=== PATIENT | male | born 1955 | race Caucasian/White ===

== ENCOUNTER → 2024-02-04 17:05 | Outpatient (REF) | payer OTHER, SELFPAY | LOC: RAD 17:05 | PROVIDERS: ATTENDING PHYSICIAN Urology; FAMILY PHYSICIAN Family Medicine | DX: N20.0 Calculus of kidney (principal); N21.0 Calculus in bladder | CPT/HCPCS: 76770 ==

== ENCOUNTER 2024-07-24 08:45 | Emergency (ER) | payer OTHER, SELFPAY ==
[2024-07-24 08:51] VITALS: BP 152/81
--- NOTE | 2024-07-24 10:09 | ED.GENMED ---
History of Present Illness
General
Chief Complaint: Back Pain
Time Seen by Provider: 07/24/24 09:37
History of Present Illness
History of Present Illness:
68-year-old male with history of obesity, diabetes, hypertension, hyperlipidemia presenting to the emergency department for right-sided back pain. Patient reports mild right lower back pain for the past week. In the past 2 to 3 days, has had
increased pain. He walked his dog about 5 times yesterday around the block, and is unsure if he worsened his symptoms by overdoing it. He denies any direct injury or trauma to the back. Pain is worse in the morning time, alleviates throughout the
day. He is been taking Tylenol for pain. Denies weakness or numbness to extremities. Denies any urinary complaints. Denies any bowel complaints. Denies chest pain, difficulty breathing, abdominal pain or additional acute medical complaints.
Does note history of kidney stones in the past, however feels that pain is much different than his kidney stone pain
Past History
Past History
ED Past Medical History: HTN, Hypercholesterolemia, NIDDM, Other (Kidney stones) and Other (Chronic kidney disease)
ED Past Surgical History: None and Urological (Cystourethroscopy and cystolitholapaxy a large bladder stone, right ureteral stent removed 06/29/22)
Social History
Tobacco: Former smoker
Alcohol: Occasional
Drug: None
Personal:
Living: with family
Employment: Employed
Family History
Family History: Other (Noncontributory)
Phy Exam
Physical Exam
Physical Exam:
General: Well-appearing, no clinical signs of dehydration, nontoxic and in no acute distress
HEENT: protecting airway
Neck: appears supple
CV: Normal heart rate, regular rhythm
Resp: No accessory muscle use, no increased work of breathing, lungs clear to auscultation bilaterally
Abd: no distension
Extremities: No deformities, no swelling, no erythema, pulses and sensation intact. Positive right straight leg raise test. Generalized tenderness to the right lower lumbar musculature of the back. No midline tenderness. No overlying skin
changes.
Neuro: alert, no focal neurologic deficit
: deferred
Rectal: deferred
Psych: Normal affect
Skin: Intact
Course
Orders/Labs/Results
Orders:
Orders
07/24/24 09:58
Ketorolac [Toradol] 15 mg IM NOW STA
Lidocaine [Lidocaine 4% Patch] 1 patch TOPICAL ONCE ONE
Apply Lidocaine patch(s) to:: right lower back
Lumbar Spine Complete, 4 View [CR Lumbar Spine Comp Min 4 Vw*] Urgent
Comment:
Reason For Exam: right sided pain
07/24/24 10:39
Urinalysis Reflex To Culture Urgent
Date Specimen was Collected: 07/24/24
Time Specimen was Collected: 10:32
Abnormal Lab Results
07/24/24
10:39
Urine Glucose 4+ A
(Negative)
Vital Signs
Initial and Last Documented VS:
Initial Vital Signs
Temp Pulse Resp BP Pulse Ox
97.7 F 74 16 152/81 98
07/24/24 08:51 07/24/24 08:51 07/24/24 08:51 07/24/24 08:51 07/24/24 08:51
Last Documented Vital Signs
Temp Pulse Resp BP Pulse Ox
97.7 F 63 18 131/75 95
07/24/24 08:51 07/24/24 11:31 07/24/24 11:31 07/24/24 11:31 07/24/24 11:31
MDM/Problems Addressed
MDM/Problems Addressed:
68-year-old male with history of hypertension, hyperlipidemia, diabetes presenting for right-sided back pain. Vital signs on arrival are significant for mild hypertension.
On exam, patient is resting comfortably, no acute distress or discomfort. Symptoms appear most consistent with musculoskeletal etiology. Do not suspect any concerning etiology to patient's presenting symptoms. Do not suspect any spinal fracture in
the absence of any direct trauma, and no midline spinal tenderness. No fever, systemic symptoms, or midline tenderness, without concern for spinal abscess or infection. No red flag such as bowel or bladder incontinence, focal weakness, or any
sensory deficits on exam, without present concern for spinal compression. Focal tenderness overlying the musculature. Suspect possible osteoarthritic component as well, notes that pain is better in the morning time. Patient is requesting x-ray.
Explained low utility, however agreeable to obtaining. Will treat with Toradol, lidocaine patch. Will screen with urinalysis given history of kidney stones in the past.
12:00- X-ray without acute fracture or malalignment. Continue to suspect muscular pain. Feel stable for discharge with continued outpatient supportive therapy. Advised ibuprofen or Tylenol as needed for pain. Will also prescribe lidocaine patch
and muscle relaxer. Advised outpatient follow-up. Return precautions discussed and patient verbalized understanding
*Critical Care Note
Total Time (30-74mins, 75-104mins- exclusive of procedures): Not Applicable
ED Attending Note
-
Portions of this chart may have been created with voice recognition software.� Occasional wrong word or��sound alike� substitutions may have occurred due to the inherent limitations of voice recognition software.
Discharge Plan
Departure
Patient Disposition: Home (Routine Discharge)
Date of Disposition: 07/24/24
Time of Disposition: 12:00
Patient with high blood pressure during this ER visit?: Yes
Condition: Good
Discharge Problem:
Acute lumbar back pain
Instructions: Low Back Pain (DC), Sciatica (DC)
Prescriptions:
No Action
aspirin 81 MG tablet,chewable
81 mg PO DAILY
atorvastatin 40 MG tablet
40 mg PO DAILY
atenolol 100 MG tablet
100 mg PO DAILY
amlodipine 5 mg Tablet
5 mg PO DAILY
tamsulosin 0.4 mg Capsule
0.4 mg PO DAILY
metformin 1,000 mg Tablet
1,000 mg PO BID
losartan 100 mg Tablet
100 mg PO DAILY
glipizide 5 mg Tablet
5 mg PO BID
Patient Comments:
05/30/22: Of note, pt took glipizide 5mg this AM and did not eat anything
sitagliptin phosphate 100 mg Tablet
100 mg PO DAILY
acetaminophen 325 mg Tablet
650 mg PO Q4HPRN PRN (Reason: mild pain/STARK/temp> 100.4F) Qty: 60 0RF
Referrals:
Keshawn Aaron MD [Family Provider] -
Activity Restrictions/Additional Instructions:
You were seen in the emergency department for back pain
You were found to have normal x-ray of your lower back and normal urinalysis. Please continue supportive therapy with movement, exercises, Tylenol as needed for pain.
Please follow-up closely with your primary care physician.
Return to the emergency department for any worsening of your symptoms, or any development of chest pain, difficulty breathing, abdominal pain with persistent vomiting and inability to tolerate food or liquid by mouth (concern for dehydration),
weakness, headache or confusion, fever greater than 100.4, or any additional symptoms that are concerning to you.
Thank you for choosing [facility].
Interventions
Interventions:
*Risk Screen - Suicide Last Done: 07/24/24 08:51
*General Assessment Last Done: 07/24/24 11:31
*Neglect/Abuse Screening Last Done: 07/24/24 08:51
*ED- Fall Risk Assessment Last Done: 07/24/24 11:31
*ED COVID-19 Vaccine History Last Done: 07/24/24 11:31
*Nursing Disposition Last Done: 07/24/24 11:38
ED-Musculoskeletal Assessment Last Done: 07/24/24 11:31
Discharge Date and Time
Print Language: ESTONIAN
[2024-07-24] MEDS: LIDOCAINE 4% PATCH 1 PATCH TOPICAL (10:37)
[2024-07-24] MEDS: TORADOL 15 MG IM (10:37)
[2024-07-24 10:55] LABS: Urine Albumin Negative (Neg - Trace); Urine Bilirubin Negative (Negative); Urine Character Clear (Clear); Urine Color Yellow; Urine Glucose 4+ (Negative); Urine Ketone Negative (Negative); Urine Leukocyte Negative (Negative); Urine Nitrite Negative (Negative); Urine Occult Blood Negative (Negative); Urine Specific Gravity 1.015 (<1.030); Urine Urobilinogen Negative (Neg - 1+)
[2024-07-24 11:31] VITALS: BP 131/75; BMI 31.9
== END 2024-07-24 12:10 | disposition home or self-care (01) ==
LOC: EMR 08:45
PROVIDERS: EMERGENCY PHYSICIAN Student in an Organized Health Care Education/Training Program; FAMILY PHYSICIAN Family Medicine
DX: M54.50 Low back pain, unspecified (principal); E11.22 Type 2 diabetes mellitus with diabetic chronic kidney disease; I12.9 Hypertensive chronic kidney disease with stage 1 through stage 4 chronic kidney disease, or unspecified chronic kidney disease; N18.9 Chronic kidney disease, unspecified; E78.00 Pure hypercholesterolemia, unspecified; Z87.891 Personal history of nicotine dependence; Z87.442 Personal history of urinary calculi
CPT/HCPCS: 96372; 99284; 72110; 81003

== ENCOUNTER 2024-10-10 13:34 | Outpatient (RCR) | payer OTHER, SELFPAY | END 2024-10-10 23:59 | disposition home or self-care (01) | LOC: RPT 13:34 | PROVIDERS: ATTENDING PHYSICIAN Family Medicine | DX: M54.50 Low back pain, unspecified (principal); M48.00 Spinal stenosis, site unspecified; Z73.6 Limitation of activities due to disability; R26.89 Other abnormalities of gait and mobility | CPT/HCPCS: 97110; 97161; 97535 ==